=== PATIENT | female | born 1940 | race Caucasian/White ===

== ENCOUNTER 2022-01-19 15:06 | Emergency (ER) | payer MEDICARE ==
[~2022-01-19] VITALS: Ht 160 cm; Wt 55.9 kg
[2022-01-19 15:45] VITALS: BP 129/32
[2022-01-19] MEDS ORDERED: cyclobenzaprine 10mg tablet PO ONE (16:55)
[2022-01-19] MEDS ORDERED: acetaminophen 325mg tablet PO ONE (16:55)
[2022-01-19] MEDS ORDERED: LIDOcaine 5% patch TP ONE (16:55)
[2022-01-19] MEDS ORDERED: ketorolac trometh inj. 60 MG/2 ML VIAL IM ONE (16:55)
== END 2022-01-19 18:30 | disposition home or self-care (01) ==
LOC: ER 15:08
DX: M54.50 Low back pain, unspecified (principal)
CPT/HCPCS: 96372; 99284; J1885

== ENCOUNTER 2022-09-26 17:13 | Emergency (ER) | payer MEDICARE ==
[~2022-09-26] VITALS: Ht 160 cm; Wt 67.5 kg
[~2022-09-26 17:13] MED LIST: AMI200T PO; AMLO10TA13 PO; CIPR250T26 PO; DONE10TA44 PO; DULO30CA52 PO; FURO20TA4 PO; GABA800T11 PO; HYDR-3964 PO; LISI20TA28 PO; METO-395 PO; PANT40TA54 PO; POTA8TAB69 PO; SUCR1TAB PO; TRAZ-256 PO; WARF2.5T82 PO
[2022-09-26 17:30] VITALS: BP 114/46
[2022-09-26] MEDS ORDERED: LIDOcaine 1% W/epiNEPHrine 1:100,000 20ml vial SQ ONE (18:40)
== END 2022-09-26 19:31 | disposition home or self-care (01) ==
LOC: ER 17:14
DX: S01.01XA Laceration without foreign body of scalp, initial encounter (principal); F03.90 Unspecified dementia, unspecified severity, without behavioral disturbance, psychotic disturbance, mood disturbance, and anxiety; Z88.0 Allergy status to penicillin; Z79.899 Other long term (current) drug therapy; Z88.8 Allergy status to other drugs, medicaments and biological substances; Z79.1 Long term (current) use of non-steroidal anti-inflammatories (NSAID); Z79.2 Long term (current) use of antibiotics; W18.39XA Other fall on same level, initial encounter; Y93.89 Activity, other specified; Y92.89 Other specified places as the place of occurrence of the external cause; Y99.8 Other external cause status
CPT/HCPCS: 12001; 70450; 72125; 99284